=== PATIENT | male | born 1960 | race Caucasian/White ===

== ENCOUNTER 2018-04-07 08:14 | Outpatient (CLI) | payer BC ==
--- NOTE | 2018-04-07 11:35 | MRI ---
MRI LUMBAR SPINE NONCONTRAST: DATE: 04-07-18 HISTORY: 58-year-old male with M54.10 acute lumbar radiculopathy, left lower extremity numbness. COMPARISON: 01-25-14 FINDINGS: For the purposes of this report, it will be assumed that there are 5 lumbar-type vertebrae. The vert ebral body heights are maintained. Conus medullaris terminates at L1-2. There is no significant central spinal canal stenosis at any lev el. At L1-2 there is minimal central spinal canal stenosis and a prominent posterior epidural fat pad resulting in mild thecal sac stenosis. At L4-5 and L5-S1 the caliber of the thecal sac is generous. The findings by individual levels are as follows: T12-L1: Moderate to severe disc space narrowing. Endplate irregularity that is minimally worse than p reviously. Mild diffuse disc bulge. No neural foraminal stenosis. L1-2: Normal. L2-3: Interval worsening of disc space narrowing, now severe. Interval worsening of endplate marrow c hanges, including Modic type 1 marrow edema, mostly on the left side, associated with extensive T2 hy perintense signal within the left side of the disc space which probably represents extensive annular fissures. Osteomyelitis/discitis is considered less likely, but not excluded. Clinical correlation re commended. Again noted is the diffuse, circumferential broad based disc bulge/osteophytic bar comple x. This is asymmetrically larger at the left lateral and far lateral aspects, but is only associated with mild left neural foraminal stenosis. There is also mild right neural foraminal stenosis. L3-4: Minimal disc space narrowing. Mild disc bulge. Mild bilateral neural foraminal stenosis. Mild b ilateral degenerative facet changes. L4-5: Normal disc height and disc signal. Minimal disc bulge. Mild right neural foraminal stenosis. N o significant left neural foraminal stenosis. Mild bilateral degenerative facet changes with bilatera l facet joint effusions. L5-S1: Bilateral L5 pars interarticularis defects result in a mild grade I anterolisthesis of L5 on S 1. Mild diffuse disc bulge. Disc desiccation and mild disc space narrowing have not changed. No neura l foraminal stenosis. No significant interval change. IMPRESSION: 1. Grade I spondylolisthesis at L5-S1 due to bilateral L5 spondylolysis. 2. No significant central spinal canal stenosis and no high grade neural foraminal stenosis, at any l evel. 3. Lumbar spondylosis with varying degrees of degenerative disc disease (mostly mild) and facet osteo arthrosis (mostly mild). 4. The exception and only significant interval change, is worsening of what are high grade degenerati ve disc disease at L2-3 on the left. The alternative, less likely possibility would be early osteomy elitis-discitis here. LISY Galdamez POS: [facility]
== END 2018-04-07 08:15 | disposition home or self-care (01) ==
LOC: BICMRI 08:14
PROVIDERS: ATTEND Anesthesiology Pain Medicine
DX: M47.26 Other spondylosis with radiculopathy, lumbar region (principal); M51.16 Intervertebral disc disorders with radiculopathy, lumbar region; M43.17 Spondylolisthesis, lumbosacral region
CPT/HCPCS: 72148

== ENCOUNTER 2021-09-06 13:44 | Outpatient (CLI) | payer BC | END 2021-09-06 13:45 | disposition home or self-care (01) | LOC: BICRAD 13:44 | PROVIDERS: ATTEND Neurological Surgery | DX: M47.22 Other spondylosis with radiculopathy, cervical region (principal) | CPT/HCPCS: 72050 ==

== ENCOUNTER 2021-11-28 10:31 | Day surgery (SDC) | payer BC ==
[2021-11-28] MEDS ORDERED: Lidocaine 1% PF 5 ML VIAL ONE (11:24)
[2021-11-28] MEDS ORDERED: Neomycin-Polymyxin 1 ML AMP ONE (11:24)
[2021-11-28] MEDS ORDERED: Sodium Chloride 0.9% 100 ML ONE (11:31)
[2021-11-28] MEDS ORDERED: CEFAZOLIN 2 GM VIAL ONE (11:31)
[2021-11-28] MEDS ORDERED: Midazolam HCl 2 mg/2 ml Vial ONE (11:32)
[2021-11-28] MEDS ORDERED: fentaNYL Citrate/PF 100 MCG/2 ML SYRINGE ONE (11:32)
[2021-11-28] MEDS ORDERED: Ketamine 50 MG/ML (10ML VIAL) ONE (11:33)
[2021-11-28] MEDS ORDERED: Propofol 500 MG/50 ML VIAL ONE (11:33)
== END 2021-11-28 14:15 | disposition home or self-care (01) ==
LOC: SDC 10:31
PROVIDERS: ATTEND Neurological Surgery
PROC: 01N50ZZ Release Median Nerve, Open Approach (ICD-10-PCS; principal; 2021-11-28)
DX: G56.03 Carpal tunnel syndrome, bilateral upper limbs (principal); M50.10 Cervical disc disorder with radiculopathy, unspecified cervical region; I10 Essential (primary) hypertension; E78.00 Pure hypercholesterolemia, unspecified; G43.909 Migraine, unspecified, not intractable, without status migrainosus; F32.A Depression, unspecified; G89.29 Other chronic pain; I25.2 Old myocardial infarction; M19.90 Unspecified osteoarthritis, unspecified site; Z87.820 Personal history of traumatic brain injury; Z79.82 Long term (current) use of aspirin; Z79.899 Other long term (current) drug therapy; Z88.8 Allergy status to other drugs, medicaments and biological substances; Z87.891 Personal history of nicotine dependence; Z98.890 Other specified postprocedural states
CPT/HCPCS: J0690; J2250; J2704; J3490

== ENCOUNTER 2021-12-09 10:54 | Outpatient (CLI) | payer BC ==
[2021-12-09 12:07] LABS: Mean Corpuscular Hemoglobin 29.9 pg (27.0-33.0); Mean Corpuscular Volume 90.5 fl (81.2-95.1); Platelet Count 253 10x3/uL (150-450); RBC Distribution Width 12.6 % (11.5-14.5); Red Blood Cell (RBC) Count 5.36 10x6/uL (4.32-5.72); White Blood Cell (WBC) Count 5.3 10x3/uL (3.5-10.5)
[2021-12-09 12:35] LABS: PTT 29.6 sec (22.0-33.0); Prothrombin Time 10.5 sec (9.5-12.1)
== END 2021-12-09 10:55 | disposition home or self-care (01) ==
LOC: LABBT 10:54
PROVIDERS: ATTEND Neurological Surgery
DX: Z01.812 Encounter for preprocedural laboratory examination (principal); G56.02 Carpal tunnel syndrome, left upper limb
CPT/HCPCS: 85027; 85610; 85730

== ENCOUNTER 2021-12-12 10:48 | Day surgery (SDC) | payer BC ==
[2021-12-11 10:35] VITALS: BMI 26.4
[2021-12-12] MEDS ORDERED: Midazolam HCl 2 mg/2 ml Vial ONE (11:42)
[2021-12-12] MEDS ORDERED: Propofol 1,000 MG/100 ML VIAL IV ONE (11:46)
[2021-12-12] MEDS ORDERED: fentaNYL Citrate/PF 100 MCG/2 ML SYRINGE ONE (11:46)
[2021-12-12] MEDS ORDERED: Ketamine 50 MG/ML (10ML VIAL) ONE (11:46)
[2021-12-12] MEDS ORDERED: Bupivacaine PF 0.5% 30 ML VIAL ONE (11:49)
[2021-12-12] MEDS ORDERED: Neomycin-Polymyxin 1 ML AMP ONE (11:49)
[2021-12-12] MEDS ORDERED: Sodium Chloride 0.9% 100 ML ONE (11:59)
[2021-12-12] MEDS ORDERED: CEFAZOLIN 2 GM VIAL ONE (11:59)
[2021-12-12] MEDS ORDERED: PHENYLEPHRINE-NS 100 MCG/ML 10 ML SYRINGE ONE ×2 (12:29→13:13)
[2021-12-12] MEDS ORDERED: ePHEDrine 50 MG/ML VIAL ONE (12:29)
[2021-12-12] MEDS ORDERED: ePHEDrine Sulfate 50 MG/10 ML VIAL ONE (13:13)
[2021-12-12] MEDS ORDERED: HYDROcodone/Acetaminophen 5/325 mg Tablet ONE (13:49)
== END 2021-12-12 14:05 | disposition home or self-care (01) ==
LOC: SDC 10:48
PROVIDERS: ATTEND Neurological Surgery
PROC: 01N50ZZ Release Median Nerve, Open Approach (ICD-10-PCS; principal; 2021-12-12)
DX: G56.02 Carpal tunnel syndrome, left upper limb (principal); M50.11 Cervical disc disorder with radiculopathy, high cervical region; M48.02 Spinal stenosis, cervical region; M19.90 Unspecified osteoarthritis, unspecified site; E78.00 Pure hypercholesterolemia, unspecified; G89.29 Other chronic pain; I11.9 Hypertensive heart disease without heart failure; I25.2 Old myocardial infarction; Z87.820 Personal history of traumatic brain injury; Z87.891 Personal history of nicotine dependence; Z79.1 Long term (current) use of non-steroidal anti-inflammatories (NSAID); Z79.82 Long term (current) use of aspirin; Z79.899 Other long term (current) drug therapy; Z88.8 Allergy status to other drugs, medicaments and biological substances; Z95.5 Presence of coronary angioplasty implant and graft
CPT/HCPCS: J2250; J2704; J3490; S0020

== ENCOUNTER 2022-04-03 15:22 | Outpatient (CLI) | payer OTHER, BC | END 2022-04-03 15:23 | disposition home or self-care (01) | LOC: TBSIIMAG 15:22 | PROVIDERS: ATTEND Neurological Surgery | DX: M47.812 Spondylosis without myelopathy or radiculopathy, cervical region (principal); Z98.890 Other specified postprocedural states | CPT/HCPCS: 72040 ==